=== PATIENT | male | born 1965 | race Caucasian/White ===

== ENCOUNTER 2024-01-19 12:39 | Emergency (ER) | payer OTHER ==
[~2024-01-19] VITALS: Ht 177.8 cm; Wt 113.4 kg
[2024-01-19 13:16] LABS: BASOPHILS ABSOLUTE AUTO 0.03 K/mm3 (0.00-0.23); BASOPHILS PERCENT AUTO 0 % (0-2); EOSINOPHILS ABSOLUTE AUTO 0.06 K/mm3 (0.00-0.68); EOSINOPHILS PERCENT AUTO 1 % (0-6); Hematocrit 47.8 % (37.0-53.0); Hemoglobin 17.3 g/dL (13.5-17.5); IMMATURE GRAN ABSOLUTE AUTO 0.03 K/mm3 (0.00-0.10); IMMATURE GRAN PERCENT AUTO 0 % (0-1); LYMPHOCYTES ABSOLUTE AUTO 2.26 K/mm3 (0.84-5.20); LYMPHOCYTES PERCENT AUTO 28 % (21-46); MONOCYTES ABSOLUTE AUTO 0.87 K/mm3 (0.16-1.47); MONOCYTES PERCENT AUTO 11 % (4-13); Mean Corpuscular HGB 29.7 pg (26.0-34.0); Mean Corpuscular HGB Conc 36.2 g/dL (31.5-36.5); Mean Corpuscular Volume 82 fL (80-100); Mean Platelet Volume 10.6 fL (9.1-12.4); NEUTROPHILS PERCENT AUTO 59 % (41-73); Platelet Count 249 K/mm3 (150-400); RDW Coefficient Variation 13.3 % (11.7-14.2); RDW Standard Deviation 39.2 fL (35.1-46.3); Red Blood Cell Count 5.83 M/mm3 (4.30-5.90); White Blood Cell Count 7.95 K/mm3 (4.00-11.30)
[2024-01-19] MEDS ORDERED: MUPIROCIN1 G1 TOP (13:27)
[2024-01-19] MEDS ORDERED: KETO15TC TOP (13:27)
[2024-01-19 13:34] LABS: Alanine Aminotransfer (ALT/SGP 40 U/L (12-78); Albumin, Blood 4.2 g/dL (3.4-5.0); Albumin/Globulin Ratio 1.1 (0.8-1.8); Alk Phos 83 U/L (50-136); Anion Gap 13 mmol/L (3-11); Aspartate Aminotrans (AST/SGOT 22 U/L (12-37); Blood Urea Nitrogen 16 mg/dL (8-24); Bun/Creatinine Ratio 21.5 (12.0-20.0); CO2, Blood 21 mmol/L (21-32); Chloride, Blood 106 mmol/L (98-108); Cholesterol 132 mg/dL (50-200); Creatinine, Blood 0.74 mg/dL (0.60-1.20); Globulin, Blood 3.7 g/dL (2.2-4.0); Glomerular Filtration Rate 105 (60-); Glucose, Blood 340 mg/dL (70-99); Potassium, Blood 4.1 mmol/L (3.5-5.5); Sodium, Blood 136 mmol/L (136-145); Total Protein, Blood 7.9 g/dL (6.4-8.2); Triglycerides 252 mg/dL (30-160)
== END 2024-01-19 13:35 ==
LOC: ER 12:39
PROVIDERS: Physician Assistant
DX: L30.4 Erythema intertrigo (principal)
CPT/HCPCS: 80053; 82465; 83036; 84478; 85025; 99282

== ENCOUNTER 2024-09-07 04:58 | Emergency (ER) | payer BC ==
[~2024-09-07] VITALS: Ht 177.8 cm; Wt 122.5 kg
[~2024-09-07 04:58] MED LIST: KETO15TC TOP; MUPIROCIN1 G1 TOP
[2024-09-07 05:19] LABS: Source, Urine Clean Catch
[2024-09-07 05:26] LABS: Appearance, Urine Hazy (Clear); Bilirubin, Urine Neg (Neg); Blood, Urine 5+ (Neg); Color, Urine Yellow (P-Yellow); Glucose Qualitative, Urine Neg (Neg); Ketones, Urine Neg (Neg); Leukocyte Esterase, Urine 1+ (Neg); Nitrite, Urine Neg (Neg); Protein, Urine 2+ (Neg); Urobilinogen, Urine NORM (Normal)
[2024-09-07 05:35] LABS: BASOPHILS ABSOLUTE AUTO 0.04 K/mm3 (0.00-0.23); BASOPHILS PERCENT AUTO 0 % (0-2); EOSINOPHILS ABSOLUTE AUTO 0.19 K/mm3 (0.00-0.68); EOSINOPHILS PERCENT AUTO 2 % (0-6); Hematocrit 42.3 % (37.0-53.0); Hemoglobin 14.6 g/dL (13.5-17.5); IMMATURE GRAN ABSOLUTE AUTO 0.03 K/mm3 (0.00-0.10); IMMATURE GRAN PERCENT AUTO 0 % (0-1); LYMPHOCYTES ABSOLUTE AUTO 1.75 K/mm3 (0.84-5.20); LYMPHOCYTES PERCENT AUTO 17 % (21-46); MONOCYTES ABSOLUTE AUTO 1.41 K/mm3 (0.16-1.47); MONOCYTES PERCENT AUTO 14 % (4-13); Mean Corpuscular HGB 29.4 pg (26.0-34.0); Mean Corpuscular HGB Conc 34.5 g/dL (31.5-36.5); Mean Corpuscular Volume 85 fL (80-100); Mean Platelet Volume 9.8 fL (9.1-12.4); NEUTROPHILS ABSOLUTE AUTO 6.74 K/mm3 (1.96-9.15); NEUTROPHILS PERCENT AUTO 66 % (41-73); Platelet Count 224 K/mm3 (150-400); RDW Coefficient Variation 13.3 % (11.7-14.2); RDW Standard Deviation 41.4 fL (35.1-46.3); Red Blood Cell Count 4.96 M/mm3 (4.30-5.90); White Blood Cell Count 10.16 K/mm3 (4.00-11.30)
[2024-09-07 05:45] LABS: Hyaline Casts 0-2 /lpf (0-2)
[2024-09-07 05:49] LABS: Amorphous Light (0-Heavy); Bacteria Mod /hpf; Mucus Light (0-Heavy); Squamous Epithelial Cells Few /hpf (Few)
[2024-09-07] MEDS ORDERED: FentaNYL Citrate 50 MCG/ML 2 ML Injection IV PRN (05:50)
[2024-09-07 05:51] LABS: Renal Epithelial Rare /hpf (0-Rare)
[2024-09-07 05:56] LABS: Bilirubin, Total 0.8 mg/dL (0.1-1.0); Calcium, Blood 9.2 mg/dL (8.5-10.1); Creatinine, Blood 1.33 mg/dL (0.60-1.20); Globulin, Blood 3.9 g/dL (2.2-4.0); Potassium, Blood 3.8 mmol/L (3.5-5.5); Total Protein, Blood 7.9 g/dL (6.4-8.2)
[2024-09-07] MEDS ORDERED: Tamsulosin HCl 0.4 MG Cap PO ONE (06:40)
[2024-09-07] MEDS ORDERED: OxyCODONE 5 mg/Acetamin 325 mg TABLET PO ONE (06:40)
[2024-09-07] MEDS ORDERED: NS 1,000 ML IV SCH (06:40)
[2024-09-07] MEDS ORDERED: TAMS.4ER PO (08:22)
[2024-09-07] MEDS ORDERED: Percocet 5-3251 EACH PO (08:22)
== END 2024-09-07 08:34 | disposition home or self-care (01) ==
LOC: ER 04:58
PROVIDERS: Emergency Medicine
DX: N13.2 Hydronephrosis with renal and ureteral calculous obstruction (principal); I25.10 Atherosclerotic heart disease of native coronary artery without angina pectoris; I10 Essential (primary) hypertension; E11.9 Type 2 diabetes mellitus without complications; Z95.5 Presence of coronary angioplasty implant and graft
CPT/HCPCS: 74177; 80053; 81001; 85025; 87086; 87147; 96361; 96374-59; 99284-25; A9270; J3010; J7030; Q9967

== ENCOUNTER 2024-09-14 18:26 | Emergency (ER) | payer BC ==
[~2024-09-14] VITALS: Ht 177.8 cm; Wt 77.1 kg
[~2024-09-14 18:26] MED LIST changes: +Percocet 5-3251 EACH PO; +TAMS.4ER PO
[2024-09-14 19:16] LABS: BASOPHILS ABSOLUTE AUTO 0.03 K/mm3 (0.00-0.23); BASOPHILS PERCENT AUTO 0 % (0-2); EOSINOPHILS ABSOLUTE AUTO 0.01 K/mm3 (0.00-0.68); EOSINOPHILS PERCENT AUTO 0 % (0-6); Hematocrit 39.9 % (37.0-53.0); Hemoglobin 13.8 g/dL (13.5-17.5); IMMATURE GRAN ABSOLUTE AUTO 0.06 K/mm3 (0.00-0.10); IMMATURE GRAN PERCENT AUTO 1 % (0-1); LYMPHOCYTES ABSOLUTE AUTO 0.58 K/mm3 (0.84-5.20); LYMPHOCYTES PERCENT AUTO 6 % (21-46); MONOCYTES ABSOLUTE AUTO 0.54 K/mm3 (0.16-1.47); MONOCYTES PERCENT AUTO 5 % (4-13); Mean Corpuscular HGB Conc 34.6 g/dL (31.5-36.5); Mean Corpuscular Volume 84 fL (80-100); Mean Platelet Volume 9.3 fL (9.1-12.4); NEUTROPHILS ABSOLUTE AUTO 9.35 K/mm3 (1.96-9.15); NEUTROPHILS PERCENT AUTO 88 % (41-73); Platelet Count 251 K/mm3 (150-400); RDW Coefficient Variation 12.9 % (11.7-14.2); RDW Standard Deviation 39.5 fL (35.1-46.3); Red Blood Cell Count 4.76 M/mm3 (4.30-5.90); White Blood Cell Count 10.57 K/mm3 (4.00-11.30)
[2024-09-14 19:40] LABS: Albumin, Blood 3.5 g/dL (3.4-5.0); Albumin/Globulin Ratio 0.9 (0.8-1.8); Bilirubin, Total 0.9 mg/dL (0.1-1.0); Bun/Creatinine Ratio 12.4 (12.0-20.0); Calcium, Blood 9.2 mg/dL (8.5-10.1); Creatinine, Blood 1.37 mg/dL (0.60-1.20); Globulin, Blood 4.1 g/dL (2.2-4.0); Potassium, Blood 3.9 mmol/L (3.5-5.5); Total Protein, Blood 7.6 g/dL (6.4-8.2)
[2024-09-14 22:34] LABS: Source, Urine Clean Catch
[2024-09-14 22:45] LABS: Bilirubin, Urine Neg (Neg); Blood, Urine Neg (Neg); Glucose Qualitative, Urine Neg (Neg); Ketones, Urine Neg (Neg); Leukocyte Esterase, Urine Neg (Neg); Nitrite, Urine Neg (Neg); Protein, Urine 1+ (Neg); Urobilinogen, Urine NORM (Normal)
[2024-09-14 22:57] LABS: CORONAVIRUS COVID-19 AG Negative (NEGATIVE); INFLUENZA A AG Negative (NEGATIVE); INFLUENZA B AG Negative (NEGATIVE)
[2024-09-14 23:03] LABS: Color, Urine Yellow (P-Yellow)
[2024-09-14 23:05] LABS: Appearance, Urine Hazy (Clear); Bacteria Mod /hpf; Red Blood Cells, Urine 0-2 /hpf (0-2); Squamous Epithelial Cells Many /hpf (Few)
[2024-09-14] MEDS ORDERED: CefTRIAXone Sodium 1,000 MG in NS 100 ML IV ONE (23:40)
[2024-09-14] MEDS ORDERED: Ketorolac Tromethamine 15mg Vial IV ONE (23:45)
== END 2024-09-15 00:35 | disposition home or self-care (01) ==
LOC: ER 18:26
PROVIDERS: Emergency Medicine
DX: N13.2 Hydronephrosis with renal and ureteral calculous obstruction (principal); R50.9 Fever, unspecified; I10 Essential (primary) hypertension; E11.9 Type 2 diabetes mellitus without complications
CPT/HCPCS: 71046; 76770; 80053; 81001; 83880; 85025; 87086; 87428-QW; 96365; 96375; 99284-25; J0696; J1885